=== PATIENT | female | born 1995 | race Caucasian/White ===

== ENCOUNTER 2021-06-08 07:35 | Inpatient (IN) ==
--- NOTE | 2021-06-08 08:35 | Obstetrical Progress Note ---
Date of Service June 08, 2021 Assessment & Plan (1) Labor abnormal: Induction of labor for postdates FHR; CAT1 Ctx; irregular VE; 09/01/post EFW by Tonya. 8lbs Cervidil 31 placed Results & Data ([facility]) Vital Signs (Past 12 Hours) Vital Signs Pulse BP 06/08/21 08:01 104 H 128/90
[2021-06-08] MEDS ORDERED: OXYTOCIN 30 UNITS/500 ML BAG IV PRN (08:41)
[2021-06-08 08:59] LABS: Hematocrit (blood only) 37.1 % (37-47); Hemoglobin 12.3 g/dL (12.0-16.0); Mean Corpuscular Hgb Conc 33.2 g/dL (32-36); Mean Corpuscular Volume 84.3 fL (80-100); Mean Platelet Volume 9.6 fL (7.4-10.4); Platelet Count 359 K/uL (130-400); RDW Coefficient of Variation 14.4 % (11.5-14.5); RDW Standard Deviation 44.6 fL (36.4-46.3); White Blood Count 13.97 K/uL (4.8-10.8)
[2021-06-08] MEDS ORDERED: ACETAMINOPHEN 325 MG TAB PO PRN (09:23)
[2021-06-08] MEDS ORDERED: ONDANSETRON INJ 2 MG/ML 2 ML VIAL IV PRN (09:23)
[2021-06-08] MEDS ORDERED: BUTORPHANOL TARTRATE 1 MG/ML VIAL IV PRN (09:23)
[2021-06-08] MEDS ORDERED: CALCIUM CARBONATE 500 MG CHEWABLE TAB PO PRN (09:25)
[2021-06-08] MEDS: miSOPROStoL 50 MCG TAB PO SCH ×4 (09:58→23:09)
--- NOTE | 2021-06-08 16:11 | Obstetrical Progress Note ---
Date of Service June 08, 2021 Assessment & Plan Admission and Anticipated Discharge Date Admission Date: June 08, 2021 Subjective Patient is seen Admitted by Dr Garcia for IOL for postdates Reviewed her records and confirmed with her GBS neg Smoker Obesity Denies h/o STD's ( no HSV/ Chlamydia/ GC), denies alcohol or Drug use Received 2 doses of PO Cytotec, does not feel any contractions nor pain No LOF/VB +FM's FHR reassuring Plan for dinner and then continue with cervical ripening All questions were answered. Results & Data ([facility]) Vital Signs (Past 12 Hours) Vital Signs Temp Pulse Resp BP 06/08/21 13:35 86 118/73 06/08/21 13:34 36.8 C 20 06/08/21 09:09 36.6 C 06/08/21 08:01 36.6 C 104 H 20 128/90
[2021-06-08] MEDS ORDERED: DINOPROSTONE 10 MG INSERT PV STA (22:19)
[2021-06-08] MEDS: LACTATED RINGER'S 1,000 ML IV PRN (22:44)
--- NOTE | 2021-06-08 22:50 | Obstetrical Progress Note ---
Date of Service June 08, 2021 Assessment & Plan Admission and Anticipated Discharge Date Admission Date: June 08, 2021 Subjective Patient is seen and examined. She has received 3 doses of p.o. Cytotec and has been feeling irregular cramps, off and on, not regular more painful. She denies leakage of fluid, vaginal bleeding. She reports good movements. She ate dinner and ready for Cervidil. Vital signs stable afebrile, heart rate reassuring, Cervix is 1 to 2 cm dilated, 40% effaced, central, -2 station, Cervidil was placed. Continue to monitor closely, Stadol IV and epidural for pain as needed. Results & Data ([facility]) Vital Signs (Past 12 Hours) Vital Signs Temp Pulse Resp BP 06/08/21 19:02 77 139/74 06/08/21 19:00 77 149/69 H 06/08/21 18:58 36.6 C 20 06/08/21 18:05 36.6 C 78 20 134/71 06/08/21 13:35 86 118/73 06/08/21 13:34 36.8 C 20
--- NOTE | 2021-06-09 07:40 | History & Physical Bridge Note ---
Date of Service June 09, 2021 History & Physical Bridge Note I have examined the patient, reviewed the History & Physical and in the interval since the performance of the History & Physical I have noted the following changes of clinical significance: no changes noted
[2021-06-09] MEDS ORDERED: SERTRALINE HCL 50 MG TABLET PO SCH (09:00)
[2021-06-09] MEDS ORDERED: Nursing to Pharmacy Communication SCH (12:45)
--- NOTE | 2021-06-09 13:37 | Labor Progress Brief Note ---
Date of Service June 09, 2021 Assessment & Plan (1) Post-dates : Plan: Postdates induction day #2 Pt doing well received Cytotec and Cervidil since admission FHR; CAY1 Ctx Minimal ad irregular VE; 2/-2 Hammond bulb [placed with 60 c and starting Pitocin augmentation Admission and Anticipated Discharge Date Admission Date: June 08, 2021 Results & Data ([facility]) Vital Signs (Past 12 Hours) Vital Signs Temp Pulse Resp BP 06/09/21 10:55 36.9 C 98 H 20 140/79 06/09/21 07:11 36.8 C 96 H 20 117/67 06/09/21 04:44 78 110/55 L 06/09/21 02:32 76 108/58 L 06/09/21 02:30 36.7 C 18
[2021-06-09] MEDS: LACTATED RINGER'S 1,000 ML IV PRN ×3 (14:19→21:36)
[2021-06-09] MEDS: OXYTOCIN 30 UNITS/500 ML BAG IV PRN (14:20)
[2021-06-09] MEDS: miSOPROStoL 50 MCG TAB PO SCH (15:53)
[2021-06-09] MEDS ORDERED: SODIUM CHLORIDE 0.9% INJ 10 ML VIAL ONE (20:36)
[2021-06-09] MEDS ORDERED: ePHEDrine sulfate 50 MG/ML AMP ONE (20:36)
[2021-06-09] MEDS ORDERED: fentaNYL 2MCG/ML ROPIVACAINE 1.25MG/ML 100 ML BAG EPI ONE (20:36)
[2021-06-09] MEDS ORDERED: BUPIVACAINE 0.25% 30 ML VIAL ONE (20:36)
[2021-06-09] MEDS ORDERED: fentaNYL citrate 100 MCG/2 ML VIAL ONE (20:36)
--- NOTE | 2021-06-09 21:20 | Anesthesiology Consultation ---
Date of Service June 09, 2021 Assessment & Plan Chart Review Chart Review: Acceptable Risk for Labor Epidural Consults Requested none History Height/Weight Height: 5 ft 2 in Weight: 92.079 kg Allergies Allergy/AdvReac Type Severity Reaction Status Date / Time Sulfa (Sulfonamide Allergy Intermediate Hives Verified 06/08/21 10:51 Antibiotics) Medications Home Medications Medication Instructions Recorded Confirmed Last Taken ferrous sulfate 325 mg (65 mg 325 mg PO DAILY 06/08/21 06/08/21 06/07/21 20:00 iron) tablet (Iron (ferrous sulfate)) prenat.vits,swapna,ueq-girs-ohukc 1 tab PO DAILY 06/08/21 06/08/21 06/07/21 20:00 Active Medications Generic Name Dose Route Start Last Admin Trade Name Freq PRN Reason Stop Dose Admin Lactated Ringer's 1,000 mls @ 125 mls/hr 06/08/21 08:41 06/09/21 18:44 Lr IV 06/10/21 08:40 125 mls/hr .Q8H PRN Administration L&D Protocol Protocol Oxytocin 30 units in 500 mls @ 20 mls/hr 06/09/21 13:44 06/09/21 19:55 Pitocin IV 06/11/21 13:43 1.2 units/hr .Q24H PRN 20 mls/hr Labor Induction/Augmentation Titration Protocol 1.2 UNITS/HR Past Medical History Medical History (Updated 06/09/21 @ 13:36 by Lev Garcia MD) No known health problems Past Family History Family History (Updated 06/08/21 @ 11:16 by Inna Sousa RN) Denies family history of No significant family history Past Surgical History Surgical History (Updated 06/08/21 @ 11:15 by Inna Sousa RN) History of appendectomy Social History Smoking Status: Current every day smoker tobacco type: cigarettes Smoking cigarettes per day: 10 Do You Dip or Chew Tobacco: No Hx Alcohol Use: No Hx Substance Use: No substance use type: does not use Physical Exam Vital Signs Last Vital Signs Temp 36.7 C 06/09/21 17:57 Pulse 133 H 06/09/21 21:16 Resp 20 06/09/21 17:57 BP 131/72 06/09/21 21:16 Pulse Ox 99 06/09/21 21:13 Testing Laboratory Results 06/08/21 08:51 Blood Type O Positive 06/08/21 08:51 Antibody Screen NEGATIVE 06/08/21 08:51
[2021-06-09] MEDS ORDERED: NALOXONE HCL 1 MG in SODIUM CHLORIDE 0.9% 1000ML 1,000 ML IV PRN (21:21)
[2021-06-09] MEDS ORDERED: NALBUPHINE HCL INJ 10 MG/ML AMP IV PRN (21:21)
[2021-06-09] MEDS ORDERED: NALOXONE HCL 0.4 MG/1 ML VIAL/CARP IV PRN (21:21)
[2021-06-09] MEDS ORDERED: diphenhydrAMINE 50 MG/ML VIAL IV PRN (21:21)
[2021-06-09] MEDS ORDERED: ePHEDrine sulfate 50 MG/ML AMP IV PRN (21:21)
--- NOTE | 2021-06-09 23:42 | Labor Progress Brief Note ---
Date of Service June 09, 2021 Assessment & Plan (1) Post-dates : Plan: Pt doing well Hammond bulb out FHR; CAT1 Ctx 1-3mins Pit; 20MU VE; 4/75/-2 AROM - clear Admission and Anticipated Discharge Date Admission Date: June 08, 2021 Results & Data ([facility]) Vital Signs (Past 12 Hours) Vital Signs Temp Pulse Resp BP Pulse Ox 06/09/21 23:38 77 99 06/09/21 23:33 80 98 06/09/21 23:32 80 108/59 L 06/09/21 23:28 89 98 06/09/21 23:23 64 95 06/09/21 23:18 64 108/58 L 96 06/09/21 23:13 69 94 06/09/21 23:08 70 95 06/09/21 23:03 81 114/60 95 06/09/21 23:00 18 06/09/21 22:58 75 94 06/09/21 22:53 79 92 06/09/21 22:48 89 91 06/09/21 22:46 73 113/63 06/09/21 22:44 71 94 06/09/21 22:43 68 95 06/09/21 22:38 69 95 06/09/21 22:33 64 96 06/09/21 22:31 64 115/63 06/09/21 22:30 20 06/09/21 22:28 68 95 06/09/21 22:24 66 94 06/09/21 22:23 71 95 06/09/21 22:18 64 96 06/09/21 22:17 64 116/60 06/09/21 22:14 69 94 06/09/21 22:13 68 96 06/09/21 22:08 69 94 06/09/21 22:03 64 95 06/09/21 22:02 82 118/62 06/09/21 22:00 16 06/09/21 21:58 66 95 06/09/21 21:56 66 94 06/09/21 21:53 67 95 06/09/21 21:48 66 96 06/09/21 21:43 65 96 06/09/21 21:38 67 104/54 L 97 06/09/21 21:33 66 98 06/09/21 21:32 70 98/50 L 06/09/21 21:30 20 06/09/21 21:28 66 97 06/09/21 21:25 71 130/55 L 06/09/21 21:23 84 98 06/09/21 21:21 86 134/62 06/09/21 21:18 95 H 99 06/09/21 21:16 133 H 131/72 06/09/21 21:13 127 H 99 06/09/21 21:10 76 125/58 L 06/09/21 21:08 76 128/66 97 06/09/21 21:06 73 124/75 06/09/21 21:05 72 121/58 L 06/09/21 21:03 73 98 06/09/21 20:58 87 100 06/09/21 20:53 89 100 06/09/21 20:48 85 100 06/09/21 20:42 71 99 06/09/21 20:37 75 99 06/09/21 20:32 72 100 06/09/21 20:29 70 130/81 06/09/21 20:27 71 97 06/09/21 19:57 59 L 124/71 06/09/21 17:57 36.7 C 20 06/09/21 17:52 85 114/68 06/09/21 17:07 73 112/62 06/09/21 16:08 89 127/61 06/09/21 15:05 36.9 C 16 06/09/21 15:00 82 118/59 L 06/09/21 14:25 78 128/68
[2021-06-10] MEDS ORDERED: OXYTOCIN 20 UNITS in LACTATED RINGER'S 1,000 ML IV SCH (00:16)
[2021-06-10] MEDS: LACTATED RINGER'S 1,000 ML IV PRN (03:24)
[2021-06-10] MEDS: fentaNYL 2MCG/ML ROPIVACAINE 1.25MG/ML 100 ML BAG EPI PRN ×2 (06:19→12:55)
--- NOTE | 2021-06-10 06:34 | Labor Progress Brief Note ---
Date of Service June 10, 2021 Assessment & Plan (1) Post-dates : Plan: Pit 20mu VE; 5//-1 Ctx ; 2-5mins IUPC and scalp placed without difficulty will increase Pitocin to 30mu Admission and Anticipated Discharge Date Admission Date: June 08, 2021 Results & Data ([facility]) Vital Signs (Past 12 Hours) Vital Signs Temp Pulse Resp BP Pulse Ox 06/10/21 06:28 81 97 06/10/21 06:23 70 97 06/10/21 06:18 71 119/64 97 06/10/21 06:13 77 97 06/10/21 06:08 75 98 06/10/21 06:03 82 97 06/10/21 06:02 73 115/63 06/10/21 05:58 75 97 06/10/21 05:53 75 96 06/10/21 05:48 71 96 06/10/21 05:46 85 117/60 06/10/21 05:43 82 95 06/10/21 05:38 68 95 06/10/21 05:33 68 96 06/10/21 05:31 73 115/62 06/10/21 05:28 68 96 06/10/21 05:23 69 95 06/10/21 05:18 67 96 06/10/21 05:17 70 112/63 06/10/21 05:13 64 96 06/10/21 05:08 69 95 06/10/21 05:04 57 L 112/56 L 06/10/21 05:03 64 95 06/10/21 05:02 65 116/56 L 06/10/21 05:00 36.8 C 18 06/10/21 04:58 79 96 06/10/21 04:53 68 96 06/10/21 04:48 66 97 06/10/21 04:46 83 105/59 L 06/10/21 04:43 65 96 06/10/21 04:38 67 96 06/10/21 04:33 68 96 06/10/21 04:31 86 104/55 L 06/10/21 04:28 68 96 06/10/21 04:23 63 96 06/10/21 04:18 70 96 06/10/21 04:17 73 108/58 L 06/10/21 04:13 71 96 06/10/21 04:08 71 96 06/10/21 04:03 73 96 06/10/21 04:01 65 112/56 L 06/10/21 03:58 70 96 06/10/21 03:53 73 97 06/10/21 03:49 69 107/55 L 06/10/21 03:48 72 93 06/10/21 03:43 84 97 06/10/21 03:38 76 96 06/10/21 03:33 75 96 06/10/21 03:32 78 107/58 L 06/10/21 03:28 81 96 06/10/21 03:23 70 97 06/10/21 03:18 73 97 06/10/21 03:17 70 99/56 L 06/10/21 03:13 73 96 06/10/21 03:08 75 97 06/10/21 03:03 74 97 06/10/21 03:02 70 97/56 L 06/10/21 02:58 68 96 06/10/21 02:54 36.6 C 18 06/10/21 02:53 79 97 06/10/21 02:48 70 95 06/10/21 02:46 70 118/61 06/10/21 02:43 71 95 06/10/21 02:38 72 95 06/10/21 02:33 73 95 06/10/21 02:31 70 114/56 L 06/10/21 02:28 71 95 06/10/21 02:23 74 95 06/10/21 02:18 68 95 06/10/21 02:17 72 108/58 L 06/10/21 02:13 73 95 06/10/21 02:08 75 94 06/10/21 02:03 74 95 06/10/21 02:01 66 114/57 L 06/10/21 01:58 69 95 06/10/21 01:53 75 95 06/10/21 01:48 71 96 06/10/21 01:47 73 110/57 L 06/10/21 01:43 74 96 06/10/21 01:38 73 96 06/10/21 01:33 81 96 06/10/21 01:31 71 121/65 06/10/21 01:28 78 97 06/10/21 01:23 85 95 06/10/21 01:18 81 96 06/10/21 01:16 71 117/63 06/10/21 01:13 74 96 06/10/21 01:08 81 98 06/10/21 01:03 88 97 06/10/21 01:02 81 120/64 06/10/21 01:00 36.7 C 18 06/10/21 00:58 80 98 06/10/21 00:53 75 96 06/10/21 00:48 91 H 97 06/10/21 00:46 85 120/57 L 06/10/21 00:43 89 95 06/10/21 00:38 86 95 06/10/21 00:33 77 118/72 95 06/10/21 00:28 82 95 06/10/21 00:23 87 96 06/10/21 00:18 84 96 06/10/21 00:16 64 121/72 06/10/21 00:13 77 95 06/10/21 00:08 75 96 06/10/21 00:03 82 96 06/10/21 00:01 80 116/65 06/09/21 23:58 79 97 06/09/21 23:53 67 96 06/09/21 23:48 74 96 06/09/21 23:47 66 120/70 06/09/21 23:43 67 96 06/09/21 23:38 77 99 06/09/21 23:33 80 98 06/09/21 23:32 80 108/59 L 06/09/21 23:28 89 98 06/09/21 23:26 36.7 C 18 06/09/21 23:23 64 95 06/09/21 23:18 64 108/58 L 96 06/09/21 23:13 69 94 06/09/21 23:08 70 95 06/09/21 23:03 81 114/60 95 06/09/21 23:00 18 06/09/21 22:58 75 94 06/09/21 22:53 79 92 06/09/21 22:48 89 91 06/09/21 22:46 73 113/63 06/09/21 22:44 71 94 06/09/21 22:43 68 95 06/09/21 22:38 69 95 06/09/21 22:33 64 96 06/09/21 22:31 64 115/63 06/09/21 22:30 20 11/02/21 22:28 68 95 06/09/21 22:24 66 94 06/09/21 22:23 71 95 06/09/21 22:18 64 96 06/09/21 22:17 64 116/60 06/09/21 22:14 69 94 06/09/21 22:13 68 96 06/09/21 22:08 69 94 06/09/21 22:03 64 95 06/09/21 22:02 82 118/62 06/09/21 22:00 16 06/09/21 21:58 66 95 06/09/21 21:56 66 94 06/09/21 21:53 67 95 06/09/21 21:48 66 96 06/09/21 21:43 65 96 06/09/21 21:38 67 104/54 L 97 06/09/21 21:33 66 98 06/09/21 21:32 70 98/50 L 06/09/21 21:30 20 06/09/21 21:28 66 97 06/09/21 21:25 71 130/55 L 06/09/21 21:23 84 98 06/09/21 21:21 86 134/62 06/09/21 21:18 95 H 99 06/09/21 21:16 133 H 131/72 06/09/21 21:13 127 H 99 06/09/21 21:10 76 125/58 L 06/09/21 21:08 76 128/66 97 06/09/21 21:06 73 124/75 06/09/21 21:05 72 121/58 L 06/09/21 21:03 73 98 06/09/21 20:58 87 100 06/09/21 20:53 89 100 06/09/21 20:48 85 100 06/09/21 20:42 71 99 06/09/21 20:37 75 99 06/09/21 20:32 72 100 06/09/21 20:29 70 130/81 06/09/21 20:27 71 97 06/09/21 19:57 59 L 124/71
--- NOTE | 2021-06-10 09:22 | Obstetrical Progress Note ---
Date of Service June 10, 2021 Assessment & Plan Admission and Anticipated Discharge Date Admission Date: June 08, 2021 Subjective Patient is reevaluated I got sign out from Dr Garcia who placed IUPC, FSE this morning and ordered Oxytocin up to 30 miu/min Patient feels well, no complaints Has epidural and comfortable No fever/ chills/ CP/ SOB/ N&V VE was just done by her nurse, 7/ 80%/ -2 FHR categ I Continue to monitor closely Results & Data ([facility]) Vital Signs (Past 12 Hours) Vital Signs Temp Pulse Resp BP Pulse Ox Pulse Ox 06/10/21 09:18 78 130/71 97 06/10/21 09:13 79 97 06/10/21 09:08 68 97 06/10/21 09:03 65 115/59 L 97 06/10/21 08:58 69 98 06/10/21 08:53 36.6 C 81 20 97 06/10/21 08:48 79 98 06/10/21 08:47 73 119/64 06/10/21 08:43 78 98 06/10/21 08:38 73 96 06/10/21 08:33 70 98 06/10/21 08:31 68 104/59 L 06/10/21 08:28 66 97 06/10/21 08:23 71 96 06/10/21 08:18 68 97 06/10/21 08:17 96 06/10/21 08:16 70 103/58 L 06/10/21 08:13 66 96 06/10/21 08:08 71 95 06/10/21 08:03 73 95 06/10/21 08:02 66 101/57 L 06/10/21 07:58 68 95 06/10/21 07:53 69 94 06/10/21 07:48 68 94 06/10/21 07:46 70 106/57 L 06/10/21 07:43 65 95 06/10/21 07:38 77 97 06/10/21 07:33 66 95 06/10/21 07:31 60 111/59 L 06/10/21 07:28 70 95 06/10/21 07:23 68 95 06/10/21 07:18 68 107/57 L 95 06/10/21 07:13 63 96 06/10/21 07:08 62 96 06/10/21 07:03 71 97 06/10/21 07:02 36.6 C 64 20 108/62 06/10/21 06:58 65 95 06/10/21 06:53 67 96 06/10/21 06:48 65 96 06/10/21 06:47 65 110/57 L 06/10/21 06:43 67 96 06/10/21 06:38 85 98 06/10/21 06:33 73 99 06/10/21 06:31 75 127/71 06/10/21 06:28 81 97 06/10/21 06:23 70 97 06/10/21 06:18 71 119/64 97 06/10/21 06:13 77 97 06/10/21 06:08 75 98 06/10/21 06:03 82 97 06/10/21 06:02 73 115/63 06/10/21 05:58 75 97 06/10/21 05:53 75 96 06/10/21 05:48 71 96 06/10/21 05:46 85 117/60 06/10/21 05:43 82 95 06/10/21 05:38 68 95 06/10/21 05:33 68 96 06/10/21 05:31 73 115/62 06/10/21 05:28 68 96 06/10/21 05:23 69 95 06/10/21 05:18 67 96 06/10/21 05:17 70 112/63 06/10/21 05:13 64 96 06/10/21 05:08 69 95 06/10/21 05:04 57 L 112/56 L 06/10/21 05:03 64 95 06/10/21 05:02 65 116/56 L 06/10/21 05:00 36.8 C 18 06/10/21 04:58 79 96 06/10/21 04:53 68 96 06/10/21 04:48 66 97 06/10/21 04:46 83 105/59 L 06/10/21 04:43 65 96 06/10/21 04:38 67 96 06/10/21 04:33 68 96 06/10/21 04:31 86 104/55 L 06/10/21 04:28 68 96 06/10/21 04:23 63 96 06/10/21 04:18 70 96 06/10/21 04:17 73 108/58 L 06/10/21 04:13 71 96 06/10/21 04:08 71 96 06/10/21 04:03 73 96 06/10/21 04:01 65 112/56 L 06/10/21 03:58 70 96 06/10/21 03:53 73 97 06/10/21 03:49 69 107/55 L 06/10/21 03:48 72 93 06/10/21 03:43 84 97 06/10/21 03:38 76 96 06/10/21 03:33 75 96 06/10/21 03:32 78 107/58 L 06/10/21 03:28 81 96 06/10/21 03:23 70 97 06/10/21 03:18 73 97 06/10/21 03:17 70 99/56 L 06/10/21 03:13 73 96 06/10/21 03:08 75 97 06/10/21 03:03 74 97 06/10/21 03:02 70 97/56 L 06/10/21 02:58 68 96 06/10/21 02:54 36.6 C 18 06/10/21 02:53 79 97 06/10/21 02:48 70 95 06/10/21 02:46 70 118/61 06/10/21 02:43 71 95 06/10/21 02:38 72 95 06/10/21 02:33 73 95 06/10/21 02:31 70 114/56 L 06/10/21 02:28 71 95 06/10/21 02:23 74 95 06/10/21 02:18 68 95 06/10/21 02:17 72 108/58 L 06/10/21 02:13 73 95 06/10/21 02:08 75 94 06/10/21 02:03 74 95 06/10/21 02:01 66 114/57 L 06/10/21 01:58 69 95 06/10/21 01:53 75 95 06/10/21 01:48 71 96 06/10/21 01:47 73 110/57 L 06/10/21 01:43 74 96 06/10/21 01:38 73 96 06/10/21 01:33 81 96 06/10/21 01:31 71 121/65 06/10/21 01:28 78 97 11/03/21 01:23 85 95 06/10/21 01:18 81 96 06/10/21 01:16 71 117/63 06/10/21 01:13 74 96 06/10/21 01:08 81 98 06/10/21 01:03 88 97 06/10/21 01:02 81 120/64 06/10/21 01:00 36.7 C 18 06/10/21 00:58 80 98 06/10/21 00:53 75 96 06/10/21 00:48 91 H 97 06/10/21 00:46 85 120/57 L 06/10/21 00:43 89 95 06/10/21 00:38 86 95 06/10/21 00:33 77 118/72 95 06/10/21 00:28 82 95 06/10/21 00:23 87 96 06/10/21 00:18 84 96 06/10/21 00:16 64 121/72 06/10/21 00:13 77 95 06/10/21 00:08 75 96 06/10/21 00:03 82 96 06/10/21 00:01 80 116/65 06/09/21 23:58 79 97 06/09/21 23:53 67 96 06/09/21 23:48 74 96 06/09/21 23:47 66 120/70 06/09/21 23:43 67 96 06/09/21 23:38 77 99 06/09/21 23:33 80 98 06/09/21 23:32 80 108/59 L 06/09/21 23:28 89 98 06/09/21 23:26 36.7 C 18 06/09/21 23:23 64 95 06/09/21 23:18 64 108/58 L 96 06/09/21 23:13 69 94 06/09/21 23:08 70 95 06/09/21 23:03 81 114/60 95 06/09/21 23:00 18 06/09/21 22:58 75 94 06/09/21 22:53 79 92 06/09/21 22:48 89 91 06/09/21 22:46 73 113/63 06/09/21 22:44 71 94 06/09/21 22:43 68 95 06/09/21 22:38 69 95 06/09/21 22:33 64 96 06/09/21 22:31 64 115/63 06/09/21 22:30 20 06/09/21 22:28 68 95 06/09/21 22:24 66 94 06/09/21 22:23 71 95 06/09/21 22:18 64 96 06/09/21 22:17 64 116/60 06/09/21 22:14 69 94 06/09/21 22:13 68 96 06/09/21 22:08 69 94 06/09/21 22:03 64 95 06/09/21 22:02 82 118/62 06/09/21 22:00 16 06/09/21 21:58 66 95 06/09/21 21:56 66 94 06/09/21 21:53 67 95 06/09/21 21:48 66 96 06/09/21 21:43 65 96 06/09/21 21:38 67 104/54 L 97 06/09/21 21:33 66 98 06/09/21 21:32 70 98/50 L 06/09/21 21:30 20 06/09/21 21:28 66 97 06/09/21 21:25 71 130/55 L 06/09/21 21:23 84 98 06/09/21 21:21 86 134/62
[2021-06-10] MEDS: OXYTOCIN 30 UNITS/500 ML BAG IV PRN (12:56)
[2021-06-10] MEDS ORDERED: ceFAZolin 2000MG 2,000 MG/15 ML SYR IV SCH (14:30)
[2021-06-10] MEDS ORDERED: LACTATED RINGER'S 1,000 ML IV SCH ×3 (14:30→16:15)
--- NOTE | 2021-06-10 14:35 | Obstetrical Progress Note ---
Date of Service June 10, 2021 Assessment & Plan Admission and Anticipated Discharge Date Admission Date: June 08, 2021 Subjective Patient is reevaluated. She complains of back pain from being in bed for so long but denies contraction pain, fever, chills, nausea or vomiting. Vital signs stable afebrile, heart rate category 1, Vaginal exam done by myself cervix is 6 to 7 cm dilated, 80% effaced, head is coned and at -1 station, Pitocin has been at 30 mIU/min since 10 AM. [place] has been showing low amplitude contractions every 2 to 3 minutes. Discussed the finding with the patient, no cervical change despite AROM, maximum Pitocin 4 hours and: Had suggesting arrest of dilatation at active stage of labor and CPD. Recommended primary . Discussed the risks of as a major surgery with risks including but not limited to bleeding, infection, injury to other organs like bowels bladder ureters, increased risk of blood clots and longer recovery. She understood all and desire to proceed with . All questions were answered. She signed an informed consent. Results & Data ([facility]) Vital Signs (Past 12 Hours) Vital Signs Temp Pulse Resp BP Pulse Ox Pulse Ox 06/10/21 14:27 102 H 87 L 06/10/21 14:25 92 H 97 06/10/21 14:20 118 H 97 06/10/21 14:17 121 H 121/74 06/10/21 14:15 93 H 98 06/10/21 14:10 92 H 99 06/10/21 14:05 72 97 06/10/21 14:03 73 118/69 06/10/21 14:00 69 98 06/10/21 13:55 67 97 06/10/21 13:50 70 97 06/10/21 13:47 73 121/69 06/10/21 13:46 18 06/10/21 13:45 70 98 06/10/21 13:40 66 97 06/10/21 13:35 71 98 06/10/21 13:33 68 85 L 06/10/21 13:31 83 116/59 L 06/10/21 13:29 64 97 06/10/21 13:24 65 99 06/10/21 13:19 80 96 06/10/21 13:18 36.5 C 20 06/10/21 13:17 69 112/60 06/10/21 13:14 75 98 06/10/21 13:09 71 98 06/10/21 13:04 68 99 06/10/21 13:01 77 113/59 L 06/10/21 12:59 66 97 06/10/21 12:54 68 97 06/10/21 12:49 80 97 06/10/21 12:46 73 18 116/59 L 06/10/21 12:44 67 97 06/10/21 12:39 66 97 06/10/21 12:34 74 97 06/10/21 12:32 74 112/59 L 06/10/21 12:29 70 96 06/10/21 12:24 82 99 06/10/21 12:19 76 96 06/10/21 12:18 89 88 L 06/10/21 12:17 67 125/59 L 06/10/21 12:14 64 18 97 06/10/21 12:09 73 98 06/10/21 12:04 62 98 06/10/21 12:01 61 120/67 06/10/21 11:59 73 98 06/10/21 11:54 74 97 06/10/21 11:49 61 98 06/10/21 11:47 59 L 109/58 L 06/10/21 11:46 20 06/10/21 11:44 62 96 06/10/21 11:39 72 97 06/10/21 11:34 88 98 06/10/21 11:31 76 121/68 06/10/21 11:29 74 97 06/10/21 11:24 78 96 06/10/21 11:19 69 97 06/10/21 11:18 36.5 C 20 06/10/21 11:16 78 120/67 06/10/21 11:14 69 97 06/10/21 11:09 64 96 06/10/21 11:04 68 96 06/10/21 11:03 65 117/57 L 06/10/21 10:59 66 97 06/10/21 10:54 71 98 06/10/21 10:49 82 96 06/10/21 10:46 77 118/68 06/10/21 10:45 20 06/10/21 10:44 70 94 06/10/21 10:39 70 95 06/10/21 10:34 71 95 06/10/21 10:32 70 117/65 06/10/21 10:29 88 95 06/10/21 10:24 70 96 06/10/21 10:19 68 95 06/10/21 10:16 93 H 18 129/75 06/10/21 10:14 116 H 97 06/10/21 10:09 76 95 06/10/21 10:04 71 96 06/10/21 10:01 77 122/72 06/10/21 09:59 64 96 06/10/21 09:54 68 96 06/10/21 09:49 67 97 06/10/21 09:47 66 120/67 06/10/21 09:44 68 18 96 06/10/21 09:39 80 97 06/10/21 09:34 74 97 06/10/21 09:32 69 114/57 L 06/10/21 09:29 89 96 06/10/21 09:23 66 97 06/10/21 09:19 20 06/10/21 09:18 78 130/71 97 06/10/21 09:13 79 97 06/10/21 09:08 68 97 06/10/21 09:03 65 115/59 L 97 06/10/21 08:58 69 98 06/10/21 08:53 36.6 C 81 20 97 06/10/21 08:48 79 98 06/10/21 08:47 73 119/64 06/10/21 08:43 78 98 06/10/21 08:38 73 96 06/10/21 08:33 70 98 06/10/21 08:31 68 104/59 L 06/10/21 08:28 66 97 06/10/21 08:23 71 96 06/10/21 08:18 68 97 06/10/21 08:17 96 06/10/21 08:16 70 103/58 L 06/10/21 08:13 66 96 06/10/21 08:08 71 95 06/10/21 08:03 73 95 06/10/21 08:02 66 101/57 L 06/10/21 07:58 68 95 06/10/21 07:53 69 94 06/10/21 07:48 68 94 06/10/21 07:46 70 106/57 L 06/10/21 07:43 65 95 06/10/21 07:38 77 97 06/10/21 07:33 66 95 06/10/21 07:31 60 111/59 L 06/10/21 07:28 70 95 06/10/21 07:23 68 95 06/10/21 07:18 68 107/57 L 95 06/10/21 07:13 63 96 06/10/21 07:08 62 96 06/10/21 07:03 71 97 06/10/21 07:02 36.6 C 64 20 108/62 06/10/21 06:58 65 95 06/10/21 06:53 67 96 06/10/21 06:48 65 96 06/10/21 06:47 65 110/57 L 06/10/21 06:43 67 96 06/10/21 06:38 85 98 06/10/21 06:33 73 99 06/10/21 06:31 75 127/71 06/10/21 06:28 81 97 06/10/21 06:23 70 97 06/10/21 06:18 71 119/64 97 06/10/21 06:13 77 97 06/10/21 06:08 75 98 06/10/21 06:03 82 97 06/10/21 06:02 73 115/63 06/10/21 05:58 75 97 06/10/21 05:53 75 96 06/10/21 05:48 71 96 06/10/21 05:46 85 117/60 06/10/21 05:43 82 95 06/10/21 05:38 68 95 06/10/21 05:33 68 96 06/10/21 05:31 73 115/62 06/10/21 05:28 68 96 06/10/21 05:23 69 95 06/10/21 05:18 67 96 06/10/21 05:17 70 112/63 06/10/21 05:13 64 96 06/10/21 05:08 69 95 06/10/21 05:04 57 L 112/56 L 06/10/21 05:03 64 95 06/10/21 05:02 65 116/56 L 06/10/21 05:00 36.8 C 18 06/10/21 04:58 79 96 06/10/21 04:53 68 96 06/10/21 04:48 66 97 06/10/21 04:46 83 105/59 L 06/10/21 04:43 65 96 06/10/21 04:38 67 96 06/10/21 04:33 68 96 06/10/21 04:31 86 104/55 L 06/10/21 04:28 68 96 06/10/21 04:23 63 96 06/10/21 04:18 70 96 06/10/21 04:17 73 108/58 L 06/10/21 04:13 71 96 06/10/21 04:08 71 96 06/10/21 04:03 73 96 06/10/21 04:01 65 112/56 L 06/10/21 03:58 70 96 06/10/21 03:53 73 97 06/10/21 03:49 69 107/55 L 06/10/21 03:48 72 93 06/10/21 03:43 84 97 06/10/21 03:38 76 96 06/10/21 03:33 75 96 06/10/21 03:32 78 107/58 L 06/10/21 03:28 81 96 06/10/21 03:23 70 97 06/10/21 03:18 73 97 06/10/21 03:17 70 99/56 L 06/10/21 03:13 73 96 06/10/21 03:08 75 97 06/10/21 03:03 74 97 06/10/21 03:02 70 97/56 L 06/10/21 02:58 68 96 06/10/21 02:54 36.6 C 18 06/10/21 02:53 79 97 06/10/21 02:48 70 95 06/10/21 02:46 70 118/61 06/10/21 02:43 71 95 06/10/21 02:38 72 95 06/10/21 02:33 73 95
[2021-06-10] MEDS ORDERED: CITRIC ACID/SODIUM CITRATE 15 ML UDC PO SCH (14:45)
[2021-06-10] MEDS ORDERED: CLINDAMYCIN 900 MG in DEXTROSE 5% 50 ML IV SCH (14:45)
[2021-06-10] MEDS ORDERED: AZITHROMYCIN 500 MG in DEXTROSE 5% 250 ML IV SCH (14:45)
[2021-06-10] MEDS ORDERED: LIDOCAINE 2%/EPINEPHRINE 1:200,000 20 ML SDV ONE (14:46)
[2021-06-10] MEDS ORDERED: OXYTOCIN 10 UNITS/ML VIAL ONE ×2 (14:46→15:01)
[2021-06-10] MEDS ORDERED: MoRPHine SULFATE PF 1 MG/ML 10 ML AMP/VIAL ONE (14:47)
[2021-06-10 14:54] LABS: Basophils # (auto) 0.02 K/uL (0-0.2); Basophils % (auto) 0.1 %; Eosinophils # (auto) 0.02 K/uL (0-0.5); Eosinophils % (auto) 0.1 %; Hematocrit (blood only) 38.2 % (37-47); Hemoglobin 13.1 g/dL (12.0-16.0); Immature Granulocytes # (auto) 0.04 K/uL (0.00-0.02); Immature Granulocytes % (auto) 0.2 %; Lymphocytes # (auto) 1.57 K/uL (1.2-3.4); Lymphocytes % (auto) 7.8 %; Mean Corpuscular Hemoglobin 28.7 pg (25-34); Mean Corpuscular Hgb Conc 34.3 g/dL (32-36); Mean Corpuscular Volume 83.8 fL (80-100); Mean Platelet Volume 9.8 fL (7.4-10.4); Monocytes # (auto) 1.25 K/uL (0.11-0.59); Monocytes % (auto) 6.2 %; Neutrophils # (auto) 17.33 K/uL (1.4-6.5); Neutrophils % (auto) 85.6 %; Platelet Count 369 K/uL (130-400); RDW Coefficient of Variation 14.6 % (11.5-14.5); RDW Standard Deviation 44.6 fL (36.4-46.3); Red Blood Count 4.56 M/uL (4.2-5.4); White Blood Count 20.23 K/uL (4.8-10.8)
[2021-06-10] MEDS ORDERED: ePHEDrine sulfate 50 MG/ML AMP IV PRN (15:28)
[2021-06-10] MEDS ORDERED: NALOXONE HCL 1 MG in SODIUM CHLORIDE 0.9% 1000ML 1,000 ML IV PRN (15:28)
[2021-06-10] MEDS ORDERED: MEPERIDINE HCL 25 MG/ML CARP/VIAL IV PRN (15:28)
[2021-06-10] MEDS ORDERED: NALBUPHINE HCL INJ 10 MG/ML AMP IV PRN (15:28)
[2021-06-10] MEDS ORDERED: LACTATED RINGER'S 500 ML IV PRN (15:28)
[2021-06-10] MEDS ORDERED: NALOXONE HCL 0.08 MG in SYRINGE 1.8 ML IV PRN (15:28)
[2021-06-10] MEDS ORDERED: NALOXONE HCL 0.4 MG/1 ML VIAL/CARP IV PRN (15:28)
[2021-06-10] MEDS ORDERED: MoRPHine SULFATE PF 1 MG/ML 10 ML AMP/VIAL INT SPINAL ONE (15:28)
[2021-06-10] MEDS ORDERED: DC INTRASPINAL MORPHINE SCH (15:30)
[2021-06-10] MEDS ORDERED: SODIUM CHLORIDE 0.9% 1000ML 1,000 ML IV SCH (15:30)
[2021-06-10] MEDS ORDERED: NO NARCOTICS OR SEDATIVES SCH (15:30)
[2021-06-10] MEDS ORDERED: miSOPROStoL 200 MCG TAB ONE (15:40)
[2021-06-10] MEDS ORDERED: SENNA 8.6 MG TAB PO PRN (16:04)
[2021-06-10] MEDS ORDERED: SUPERCREAM 0.870% 15 GM JAR EXT PRN (16:04)
[2021-06-10] MEDS ORDERED: HYDROCORTISONE ACETATE 25 MG SUPP PR PRN (16:04)
[2021-06-10] MEDS ORDERED: BENZOCAINE 20% AER SPR 82.5 GM CAN EXT PRN (16:04)
[2021-06-10] MEDS ORDERED: MAGNESIUM HYDROXIDE SUSP 30 ML UDC PO PRN (16:04)
[2021-06-10] MEDS ORDERED: DIPHTHERIA/TETANUS/PERTUSSIS 0.5 ML SYR/VIAL IM ONE (16:04)
[2021-06-10] MEDS ORDERED: METHYLERGONOVINE MALEATE 0.2 MG/ML AMP ONE (16:09)
[2021-06-10] MEDS ORDERED: miSOPROStoL 200 MCG TAB PR ONE (16:09)
--- NOTE | 2021-06-10 16:33 | Anesthesiology Progress Note ---
Date of Service June 10, 2021 Anesthesia Post Procedure Vital Signs Vital Signs: Temp Pulse Resp BP Pulse Ox Pulse Ox 06/10/21 16:31 95 H 100 06/10/21 16:26 113 H 99 06/10/21 16:21 96 H 99 06/10/21 16:17 89 126/54 L 06/10/21 16:16 92 H 99 06/10/21 14:48 107 H 121/74 06/10/21 14:35 85 99 06/10/21 14:32 90 133/63 06/10/21 14:30 90 96 06/10/21 14:27 102 H 87 L 06/10/21 14:25 92 H 97 06/10/21 14:20 118 H 97 06/10/21 14:17 121 H 121/74 06/10/21 14:15 93 H 98 06/10/21 14:10 92 H 99 06/10/21 14:05 72 97 06/10/21 14:03 73 118/69 06/10/21 14:00 69 98 06/10/21 13:55 67 97 06/10/21 13:50 70 97 06/10/21 13:47 73 121/69 06/10/21 13:46 18 06/10/21 13:45 70 98 06/10/21 13:40 66 97 06/10/21 13:35 71 98 06/10/21 13:33 68 85 L 06/10/21 13:31 83 116/59 L 06/10/21 13:29 64 97 06/10/21 13:24 65 99 06/10/21 13:19 80 96 06/10/21 13:18 97.7 F 20 06/10/21 13:17 69 112/60 06/10/21 13:14 75 98 06/10/21 13:09 71 98 06/10/21 13:04 68 99 06/10/21 13:01 77 113/59 L 06/10/21 12:59 66 97 06/10/21 12:54 68 97 06/10/21 12:49 80 97 06/10/21 12:46 73 18 116/59 L 06/10/21 12:44 67 97 06/10/21 12:39 66 97 06/10/21 12:34 74 97 06/10/21 12:32 74 112/59 L 06/10/21 12:29 70 96 06/10/21 12:24 82 99 06/10/21 12:19 76 96 06/10/21 12:18 89 88 L 06/10/21 12:17 67 125/59 L 06/10/21 12:14 64 18 97 06/10/21 12:09 73 98 06/10/21 12:04 62 98 06/10/21 12:01 61 120/67 06/10/21 11:59 73 98 06/10/21 11:54 74 97 06/10/21 11:49 61 98 06/10/21 11:47 59 L 109/58 L 06/10/21 11:46 20 06/10/21 11:44 62 96 06/10/21 11:39 72 97 06/10/21 11:34 88 98 06/10/21 11:31 76 121/68 06/10/21 11:29 74 97 06/10/21 11:24 78 96 06/10/21 11:19 69 97 06/10/21 11:18 97.7 F 20 06/10/21 11:16 78 120/67 06/10/21 11:14 69 97 06/10/21 11:09 64 96 06/10/21 11:04 68 96 06/10/21 11:03 65 117/57 L 06/10/21 10:59 66 97 06/10/21 10:54 71 98 06/10/21 10:49 82 96 06/10/21 10:46 77 118/68 06/10/21 10:45 20 06/10/21 10:44 70 94 06/10/21 10:39 70 95 06/10/21 10:34 71 95 06/10/21 10:32 70 117/65 06/10/21 10:29 88 95 06/10/21 10:24 70 96 06/10/21 10:19 68 95 06/10/21 10:16 93 H 18 129/75 06/10/21 10:14 116 H 97 06/10/21 10:09 76 95 06/10/21 10:04 71 96 06/10/21 10:01 77 122/72 06/10/21 09:59 64 96 06/10/21 09:54 68 96 06/10/21 09:49 67 97 06/10/21 09:47 66 120/67 06/10/21 09:44 68 18 96 06/10/21 09:39 80 97 06/10/21 09:34 74 97 06/10/21 09:32 69 114/57 L 06/10/21 09:29 89 96 06/10/21 09:23 66 97 06/10/21 09:19 20 06/10/21 09:18 78 130/71 97 06/10/21 09:13 79 97 06/10/21 09:08 68 97 06/10/21 09:03 65 115/59 L 97 06/10/21 08:58 69 98 06/10/21 08:53 97.9 F 81 20 97 06/10/21 08:48 79 98 06/10/21 08:47 73 119/64 06/10/21 08:43 78 98 06/10/21 08:38 73 96 06/10/21 08:33 70 98 06/10/21 08:31 68 104/59 L 06/10/21 08:28 66 97 06/10/21 08:23 71 96 06/10/21 08:18 68 97 06/10/21 08:17 96 06/10/21 08:16 70 103/58 L 06/10/21 08:13 66 96 06/10/21 08:08 71 95 06/10/21 08:03 73 95 06/10/21 08:02 66 101/57 L 06/10/21 07:58 68 95 06/10/21 07:53 69 94 06/10/21 07:48 68 94 06/10/21 07:46 70 106/57 L 06/10/21 07:43 65 95 06/10/21 07:38 77 97 06/10/21 07:33 66 95 06/10/21 07:31 60 111/59 L 06/10/21 07:28 70 95 06/10/21 07:23 68 95 06/10/21 07:18 68 107/57 L 95 06/10/21 07:13 63 96 06/10/21 07:08 62 96 06/10/21 07:03 71 97 06/10/21 07:02 97.9 F 64 20 108/62 06/10/21 06:58 65 95 06/10/21 06:53 67 96 06/10/21 06:48 65 96 06/10/21 06:47 65 110/57 L 06/10/21 06:43 67 96 06/10/21 06:38 85 98 06/10/21 06:33 73 99 06/10/21 06:31 75 127/71 06/10/21 06:28 81 97 06/10/21 06:23 70 97 06/10/21 06:18 71 119/64 97 06/10/21 06:13 77 97 06/10/21 06:08 75 98 06/10/21 06:03 82 97 06/10/21 06:02 73 115/63 06/10/21 05:58 75 97 06/10/21 05:53 75 96 06/10/21 05:48 71 96 06/10/21 05:46 85 117/60 06/10/21 05:43 82 95 06/10/21 05:38 68 95 06/10/21 05:33 68 96 06/10/21 05:31 73 115/62 06/10/21 05:28 68 96 06/10/21 05:23 69 95 06/10/21 05:18 67 96 06/10/21 05:17 70 112/63 06/10/21 05:13 64 96 06/10/21 05:08 69 95 06/10/21 05:04 57 L 112/56 L 06/10/21 05:03 64 95 06/10/21 05:02 65 116/56 L 06/10/21 05:00 98.2 F 18 06/10/21 04:58 79 96 06/10/21 04:53 68 96 06/10/21 04:48 66 97 06/10/21 04:46 83 105/59 L 06/10/21 04:43 65 96 06/10/21 04:38 67 96 06/10/21 04:33 68 96 06/10/21 04:31 86 104/55 L 06/10/21 04:28 68 96 06/10/21 04:23 63 96 06/10/21 04:18 70 96 06/10/21 04:17 73 108/58 L 06/10/21 04:13 71 96 06/10/21 04:08 71 96 06/10/21 04:03 73 96 06/10/21 04:01 65 112/56 L 06/10/21 03:58 70 96 06/10/21 03:53 73 97 06/10/21 03:49 69 107/55 L 06/10/21 03:48 72 93 06/10/21 03:43 84 97 06/10/21 03:38 76 96 06/10/21 03:33 75 96 06/10/21 03:32 78 107/58 L 06/10/21 03:28 81 96 06/10/21 03:23 70 97 06/10/21 03:18 73 97 06/10/21 03:17 70 99/56 L 06/10/21 03:13 73 96 06/10/21 03:08 75 97 06/10/21 03:03 74 97 06/10/21 03:02 70 97/56 L 06/10/21 02:58 68 96 06/10/21 02:54 97.9 F 18 06/10/21 02:53 79 97 06/10/21 02:48 70 95 06/10/21 02:46 70 118/61 06/10/21 02:43 71 95 06/10/21 02:38 72 95 06/10/21 02:33 73 95 06/10/21 02:31 70 114/56 L 06/10/21 02:28 71 95 06/10/21 02:23 74 95 06/10/21 02:18 68 95 06/10/21 02:17 72 108/58 L 06/10/21 02:13 73 95 06/10/21 02:08 75 94 06/10/21 02:03 74 95 06/10/21 02:01 66 114/57 L 06/10/21 01:58 69 95 06/10/21 01:53 75 95 06/10/21 01:48 71 96 06/10/21 01:47 73 110/57 L 06/10/21 01:43 74 96 06/10/21 01:38 73 96 06/10/21 01:33 81 96 06/10/21 01:31 71 121/65 06/10/21 01:28 78 97 06/10/21 01:23 85 95 06/10/21 01:18 81 96 06/10/21 01:16 71 117/63 06/10/21 01:13 74 96 06/10/21 01:08 81 98 06/10/21 01:03 88 97 06/10/21 01:02 81 120/64 06/10/21 01:00 98.1 F 18 06/10/21 00:58 80 98 06/10/21 00:53 75 96 06/10/21 00:48 91 H 97 06/10/21 00:46 85 120/57 L 06/10/21 00:43 89 95 06/10/21 00:38 86 95 06/10/21 00:33 77 118/72 95 06/10/21 00:28 82 95 06/10/21 00:23 87 96 06/10/21 00:18 84 96 06/10/21 00:16 64 121/72 06/10/21 00:13 77 95 06/10/21 00:08 75 96 06/10/21 00:03 82 96 06/10/21 00:01 80 116/65 06/09/21 23:58 79 97 06/09/21 23:53 67 96 06/09/21 23:48 74 96 06/09/21 23:47 66 120/70 06/09/21 23:43 67 96 06/09/21 23:38 77 99 06/09/21 23:33 80 98 06/09/21 23:32 80 108/59 L 06/09/21 23:28 89 98 06/09/21 23:26 98.1 F 18 06/09/21 23:23 64 95 06/09/21 23:18 64 108/58 L 96 06/09/21 23:13 69 94 06/09/21 23:08 70 95 06/09/21 23:03 81 114/60 95 06/09/21 23:00 18 06/09/21 22:58 75 94 06/09/21 22:53 79 92 06/09/21 22:48 89 91 06/09/21 22:46 73 113/63 06/09/21 22:44 71 94 06/09/21 22:43 68 95 06/09/21 22:38 69 95 06/09/21 22:33 64 96 06/09/21 22:31 64 115/63 06/09/21 22:30 20 11/02/21 22:28 68 95 06/09/21 22:24 66 94 06/09/21 22:23 71 95 06/09/21 22:18 64 96 06/09/21 22:17 64 116/60 06/09/21 22:14 69 94 06/09/21 22:13 68 96 06/09/21 22:08 69 94 06/09/21 22:03 64 95 06/09/21 22:02 82 118/62 06/09/21 22:00 16 06/09/21 21:58 66 95 06/09/21 21:56 66 94 06/09/21 21:53 67 95 06/09/21 21:48 66 96 06/09/21 21:43 65 96 06/09/21 21:38 67 104/54 L 97 06/09/21 21:33 66 98 06/09/21 21:32 70 98/50 L 06/09/21 21:30 20 06/09/21 21:28 66 97 06/09/21 21:25 71 130/55 L 06/09/21 21:23 84 98 06/09/21 21:21 86 134/62 06/09/21 21:18 95 H 99 06/09/21 21:16 133 H 131/72 06/09/21 21:13 127 H 99 06/09/21 21:10 76 125/58 L 06/09/21 21:08 76 128/66 97 06/09/21 21:06 73 124/75 06/09/21 21:05 72 121/58 L 06/09/21 21:03 73 98 06/09/21 20:58 87 100 06/09/21 20:53 89 100 06/09/21 20:48 85 100 06/09/21 20:42 71 99 06/09/21 20:37 75 99 06/09/21 20:32 72 100 06/09/21 20:29 70 130/81 06/09/21 20:27 71 97 06/09/21 19:57 59 L 124/71 06/09/21 17:57 98.1 F 20 06/09/21 17:52 85 114/68 06/09/21 17:07 73 112/62 Pain Intensity Bilateral Abdomen: Pain Intensity: 0 Transfer of Care Handoff Completed per policy Notes Mental Status: alert / awake / arousable and participated in evaluation Nausea / Vomiting: adequately controlled Pain: adequately controlled Airway Patency, RR, SpO2: stable & adequate BP & HR: stable & adequate Hydration State: stable & adequate Neuraxial Anesthesia: was administered and sensory block is resolving Anesthetic Complications: no major complications apparent and Pt Satisfied with anesthetic care
--- NOTE | 2021-06-10 16:33 | Anesthesia Procedure Note ---
Date of Service June 10, 2021 Anesthesia Post Epidural Note Vital Signs Vital Signs: Temp Pulse Resp BP Pulse Ox 97.7 F 95 H 18 126/54 L 99 06/10/21 13:18 06/10/21 16:31 06/10/21 13:46 06/10/21 16:17 06/10/21 16:26 Pain Intensity Bilateral Abdomen: Pain Intensity: 0 Notes Mental Status: alert / awake / arousable and participated in evaluation Nausea / Vomiting: adequately controlled Pain: adequately controlled Airway Patency, RR, SpO2: stable & adequate BP & HR: stable & adequate Hydration State: stable & adequate Neuraxial Anesthesia: was administered and sensory block is resolving Anesthetic Complications: no major complications apparent and Pt Satisfied with anesthetic care Epidural: Removed without complications and With tip intact
[2021-06-10] MEDS: KETOROLAC 30 MG/ML VIAL IV PRN (16:36)
[2021-06-10] MEDS ORDERED: SODIUM CHLORIDE 0.9% 250 ML IV PRN (16:44)
[2021-06-10] MEDS ORDERED: OXYTOCIN 10 UNITS/ML VIAL IM ONE (17:08)
[2021-06-10] MEDS ORDERED: OXYTOCIN 30 UNITS in D5W AND LACTATED RINGERS 1,000 ML IV SCH (17:15)
[2021-06-10] MEDS ORDERED: ACETAMINOPHEN 1,000 MG/100 ML VIAL IV PRN (17:16)
[2021-06-10] MEDS: SIMETHICONE 80 MG CHEW PO SCH ×2 (17:40→21:33)
[2021-06-10] MEDS: METHYLERGONOVINE MALEATE 0.2 MG TAB PO SCH ×2 (17:40→21:33)
[2021-06-10] MEDS ORDERED: MEASLES, MUMPS & RUBELLA VIRUS VIAL SQ ONE (18:00)
[2021-06-10] MEDS ORDERED: guaiFENesin SUGAR FREE 100 MG/5 ML UDC PO SCH (18:00)
[2021-06-10] MEDS: guaiFENesin/DEXTROM SYRUP 200MG/20MG 10ML UDC PO SCH ×2 (18:43→23:00)
--- NOTE | 2021-06-10 19:33 | Operative Report (OR) ---
DATE OF SURGERY: 06/10/2021 PREOPERATIVE DIAGNOSES: The patient is a 26-year-old 1, para 0, at 40 weeks and 3 days of gestation, admitted for induction of labor on 06/08/2021. Received 2 days of cervical ripening and maximum dose of Pitocin and arrest of dilatation in active phase of labor, suspected macrosomia and cephalopelvic disproportion. POSTOPERATIVE DIAGNOSES: The patient is a 26-year-old 1, para 0, at 40 weeks and 3 days of gestation, admitted for induction of labor on 06/08/2021. Received 2 days of cervical ripening and maximum dose of Pitocin and arrest of dilatation in active phase of labor, suspected macrosomia and cephalopelvic disproportion, and macrosomia. PROCEDURE: Primary low transverse with Pfannenstiel skin incision. SURGEON: Yvette Nolen MD. RESEARCH AND DEVELOPMENT DIRECTOR: Elizabeth Cali, registered nurse for labor and delivery. ESTIMATED BLOOD LOSS: 600 mL. FLUIDS: 1500 mL of lactated Ringer's. DRAINS: Hammond catheter drained 100 mL of clear urine. ANESTHESIA: Labor epidural. ANESTHESIOLOGIST: Dr. Brito. COMPLICATIONS: None. FINDINGS: Baby was a viable female , delivered at 1622 p.m. Apgars were 8/8. Weight was 4314 grams. Maternal findings: Normal uterus, fallopian tubes, and ovaries. DESCRIPTION OF PROCEDURE: The patient was taken to the operating room where epidural anesthesia was found to be adequate. She was placed in dorsal supine position with a leftward tilt. She was prepared and draped in the usual sterile fashion. A Pfannenstiel skin incision was made and carried through to the underlying layer of fascia with the Bovie. Fascia was incised in the midline and incision was extended laterally with the help of Erickson scissors. Upper aspect of the facial incision was grasped with 2 Edward clamps, elevated, and underlying rectus muscles were dissected off sharply with Erickson scissors. Lower aspect of the fascial incision was then grasped with 2 Edward clamps, elevated and underlying rectus muscles were dissected off sharply with Erickson scissors. Rectus muscles were in the midline. Peritoneum was entered bluntly with fingers. Peritoneal incision was extended superiorly and inferiorly with good visualization of the bladder. Bladder blade was inserted. Vesicouterine peritoneum was identified, grasped with pickups, entered sharply with Metzenbaum scissors. Bladder flap was created digitally and bladder blade was reinserted. Lower uterine segment was incised in a transverse fashion. Incision was extended laterally with bandage scissors. Membranes were ruptured. Clear fluid was obtained. Baby's head was delivered without difficulty. Shoulders were delivered with minimal traction. Mouth and nose were suctioned. Baby was breathing, moving and crying, and cord was clamped x2 and cut at 1 minute delay, and the baby was handed off to the waiting pediatric team with Dr. Gonzalez. Placenta was delivered manually as intact and complete. Uterus was exteriorized and cleared of all clots and debris. This uterine incision was repaired with 0 Vicryl in a running locked fashion. A second imbricating layer was placed with another 0 Vicryl in a running locked fashion. Excellent hemostasis was achieved. Cul-de-sac was irrigated with warm normal saline and suctioned. Uterus was returned to the abdomen. Pelvis was irrigated with warm normal saline and suctioned. Uterine incision was checked to be hemostatic. Parietal peritoneum was reapproximated with 3-0 Vicryl in a running fashion. The rectus muscles were also brought together with the same suture in a running fashion, and under the fascia and over the rectus muscles were hemostatic. Rectus fascia was reapproximated with 0 Vicryl in a running fashion. Subcuticular fat tissue was brought together with 3-0 Vicryl in a running fashion. The skin was closed with 4-0 Monocryl in a subcuticular fashion. The patient tolerated the procedure well. Sponge, needle, and instrument count was correct x3. No complications happened. I was present during the whole procedure. She was given 2 grams of cefazolin and 900 mg of clindamycin before surgery. She was taken to the recovery room in stable condition. Job ID: [id number] [facility]
[2021-06-10] MEDS: DOCUSATE SODIUM 100 MG CAP PO SCH (21:33)
[2021-06-10] MEDS: diphenhydrAMINE 50 MG/ML VIAL IV PRN (21:53)
[2021-06-10] MEDS: CLINDAMYCIN 900 MG in DEXTROSE 5% 50 ML IV SCH (22:03)
[2021-06-10] MEDS: ceFAZolin 2000MG 2,000 MG/15 ML SYR IV SCH (23:00)
[2021-06-11] MEDS: diphenhydrAMINE 50 MG/ML VIAL IV PRN (03:52)
[2021-06-11] MEDS: guaiFENesin/DEXTROM SYRUP 200MG/20MG 10ML UDC PO SCH ×3 (05:45→17:17)
[2021-06-11] MEDS: KETOROLAC 30 MG/ML VIAL IV PRN (06:03)
[2021-06-11] MEDS: CLINDAMYCIN 900 MG in DEXTROSE 5% 50 ML IV SCH ×2 (06:15→14:42)
[2021-06-11] MEDS: ceFAZolin 2000MG 2,000 MG/15 ML SYR IV SCH ×2 (06:48→15:53)
[2021-06-11 07:09] LABS: Basophils # (auto) 0.02 K/uL (0-0.2); Basophils % (auto) 0.1 %; Eosinophils # (auto) 0.17 K/uL (0-0.5); Hematocrit (blood only) 30.9 % (37-47); Hemoglobin 10.4 g/dL (12.0-16.0); Immature Granulocytes # (auto) 0.05 K/uL (0.00-0.02); Immature Granulocytes % (auto) 0.3 %; Lymphocytes # (auto) 2.35 K/uL (1.2-3.4); Lymphocytes % (auto) 14.2 %; Mean Corpuscular Hemoglobin 28.5 pg (25-34); Mean Corpuscular Hgb Conc 33.7 g/dL (32-36); Mean Corpuscular Volume 84.7 fL (80-100); Mean Platelet Volume 9.8 fL (7.4-10.4); Monocytes # (auto) 1.33 K/uL (0.11-0.59); Monocytes % (auto) 8.1 %; Neutrophils # (auto) 12.59 K/uL (1.4-6.5); Neutrophils % (auto) 76.3 %; Platelet Count 295 K/uL (130-400); RDW Coefficient of Variation 14.7 % (11.5-14.5); RDW Standard Deviation 45.7 fL (36.4-46.3); Red Blood Count 3.65 M/uL (4.2-5.4); White Blood Count 16.51 K/uL (4.8-10.8)
[2021-06-11] MEDS: PRENATAL VITAMIN 1 TAB PO SCH (08:55)
[2021-06-11] MEDS: SIMETHICONE 80 MG CHEW PO SCH ×4 (08:55→20:11)
[2021-06-11] MEDS: FERROUS SULFATE 325 MG TAB PO SCH (08:55)
[2021-06-11] MEDS: DOCUSATE SODIUM 100 MG CAP PO SCH ×2 (08:55→20:11)
[2021-06-11] MEDS: METHYLERGONOVINE MALEATE 0.2 MG TAB PO SCH ×4 (08:55→20:11)
[2021-06-11] MEDS ORDERED: diphenhydrAMINE 50 MG/ML VIAL IV PRN (09:29)
[2021-06-11] MEDS ORDERED: PROMETHAZINE HCL 25 MG in SODIUM CHLORIDE 0.9% 50 ML IV PRN (09:29)
[2021-06-11] MEDS ORDERED: diphenhydrAMINE Capsule 25 MG CAP PO PRN (09:29)
[2021-06-11] MEDS ORDERED: ONDANSETRON INJ 2 MG/ML 2 ML VIAL IV PRN (09:29)
[2021-06-11] MEDS ORDERED: KETOROLAC 30 MG/ML VIAL IV PRN (09:29)
[2021-06-11] MEDS ORDERED: MEPERIDINE HCL 50 MG/ML CARP IV PRN (09:29)
--- NOTE | 2021-06-11 10:41 | Obstetrical Progress Note ---
Date of Service June 11, 2021 Subjective Ambulation: ambulating normally Voiding: no voiding problems Passing Gas:: Yes Diet Tolerance:: regular diet Feeding Type:: breast feeding Current Pain Level(1-10): 0 POD#1 doing well Physical Exam Constitutional WD/WN, vitals as above comfortable abdomen soft and non-tender no edema neg Carolee's will increase diet/activity Results & Data ([facility]) Vital Signs (Past 12 Hours) Vital Signs Temp Pulse Pulse Resp BP BP Pulse Ox 06/11/21 08:00 36.5 C 72 18 100/65 95 06/11/21 06:20 18 96 06/11/21 05:05 16 96 06/11/21 03:50 16 95 06/11/21 03:45 36.7 C 72 16 104/68 695 H 06/11/21 03:15 16 95 06/11/21 02:50 16 95 06/11/21 01:40 18 94 06/11/21 00:30 18 92 06/10/21 23:10 36.8 C 71 16 115/74 96 Laboratory Results 06/08/21 06/08/21 06/08/21 07:45 07:45 08:51 WBC RBC Hgb Hct MCV MCH MCHC RDW Std Deviation RDW Coeff of Lazara Plt Count MPV Immature Gran % (Auto) Neut % (Auto) Lymph % (Auto) Barren % (Auto) Eos % (Auto) Baso % (Auto) Neut # (Auto) Lymph # (Auto) Barren # (Auto) Eos # (Auto) Baso # (Auto) Immature Gran # (Auto) COVID-19 Eval Order Covid19 IDNow [facility] SARS-CoV-2, RNA, NAAT NEGATIVE Blood Type O Positive Antibody Screen NEGATIVE Crossmatch 06/08/21 06/10/21 06/10/21 08:51 14:43 14:43 WBC 13.97 H 20.23 H RBC 4.40 4.56 Hgb 12.3 13.1 Hct 37.1 38.2 MCV 84.3 83.8 MCH 28.0 28.7 MCHC 33.2 34.3 RDW Std Deviation 44.6 44.6 RDW Coeff of Lazara 14.4 14.6 H Plt Count 359 369 MPV 9.6 9.8 Immature Gran % (Auto) 0.2 Neut % (Auto) 85.6 Lymph % (Auto) 7.8 Barren % (Auto) 6.2 Eos % (Auto) 0.1 Baso % (Auto) 0.1 Neut # (Auto) 17.33 H Lymph # (Auto) 1.57 Barren # (Auto) 1.25 H Eos # (Auto) 0.02 Baso # (Auto) 0.02 Immature Gran # (Auto) 0.04 H COVID-19 Eval Order SARS-CoV-2, RNA, NAAT Blood Type O Positive Antibody Screen NEGATIVE Crossmatch See Detail 06/11/21 06:36 WBC 16.51 H RBC 3.65 L Hgb 10.4 L Hct 30.9 L MCV 84.7 MCH 28.5 MCHC 33.7 RDW Std Deviation 45.7 RDW Coeff of Lazara 14.7 H Plt Count 295 MPV 9.8 Immature Gran % (Auto) 0.3 Neut % (Auto) 76.3 Lymph % (Auto) 14.2 Barren % (Auto) 8.1 Eos % (Auto) 1.0 Baso % (Auto) 0.1 Neut # (Auto) 12.59 H Lymph # (Auto) 2.35 Barren # (Auto) 1.33 H Eos # (Auto) 0.17 Baso # (Auto) 0.02 Immature Gran # (Auto) 0.05 H COVID-19 Eval Order SARS-CoV-2, RNA, NAAT Blood Type Antibody Screen Crossmatch
[2021-06-11] MEDS: IBUPROFEN 600 MG TAB PO PRN ×3 (11:54→21:20)
[2021-06-11] MEDS: oxyCODONE/ACETAMINOPHEN 5mg/325mg TAB PO PRN ×4 (11:54→21:19)
[2021-06-11] MEDS ORDERED: bisacodyL 5 MG TABEC PO SCH (20:00)
[2021-06-12] MEDS: guaiFENesin/DEXTROM SYRUP 200MG/20MG 10ML UDC PO SCH ×3 (00:12→11:30)
[2021-06-12] MEDS: IBUPROFEN 600 MG TAB PO PRN ×3 (01:16→11:02)
[2021-06-12] MEDS: oxyCODONE/ACETAMINOPHEN 5mg/325mg TAB PO PRN ×3 (01:16→11:02)
[2021-06-12 06:57] LABS: Hematocrit (blood only) 34.2 % (37-47); Hemoglobin 11.2 g/dL (12.0-16.0)
--- NOTE | 2021-06-12 08:35 | Obstetrical Progress Note ---
Date of Service June 12, 2021 Assessment & Plan Admission and Anticipated Discharge Date Admission Date: June 08, 2021 Subjective Patient is seen and examined. She feels well, no complaints. Pain is under control with oral meds. Ambulating without dizziness Voiding without difficulty Tolerating regular diet with out N&V Flatus + BM + Bleeding is minimal No fever/ chills/ CP/ SOB/ N&V/ Leg pain Breast feeding without problems Vital Signs Temp Pulse Resp BP 06/11/21 23:35 36.5 C 75 18 115/74 Vital Signs Temp Pulse Resp BP Pulse Ox 06/11/21 23:35 36.5 C 75 18 115/74 06/11/21 19:55 36.6 C 79 18 118/75 97 06/11/21 15:25 36.6 C 88 18 118/75 95 06/11/21 12:00 36.7 C 80 18 103/66 95 Lab Results 06/08/21 06/08/21 06/08/21 Range/Units 07:45 07:45 08:51 WBC (4.8-10.8) K/uL RBC (4.2-5.4) M/uL Hgb (12.0-16.0) g/dL Hct (37-47) % MCV (80-100) fL MCH (25-34) pg MCHC (32-36) g/dL RDW Std Deviation (36.4-46.3) fL RDW Coeff of Lazara (11.5-14.5) % Plt Count (130-400) K/uL MPV (7.4-10.4) fL Immature Gran % (Auto) % Neut % (Auto) % Lymph % (Auto) % [place] % (Auto) % Eos % (Auto) % Baso % (Auto) % Neut # (Auto) (1.4-6.5) K/uL Lymph # (Auto) (1.2-3.4) K/uL [place] # (Auto) (0.11-0.59) K/uL Eos # (Auto) (0-0.5) K/uL Baso # (Auto) (0-0.2) K/uL Immature Gran # (Auto) (0.00-0.02) K/uL COVID-19 Eval Order Covid19 [facility] SARS-CoV-2, RNA, NAAT NEGATIVE (NEGATIVE) Blood Type O Positive Antibody Screen NEGATIVE Crossmatch 06/08/21 06/10/21 06/10/21 Range/Units 08:51 14:43 14:43 WBC 13.97 H 20.23 H (4.8-10.8) K/uL RBC 4.40 4.56 (4.2-5.4) M/uL Hgb 12.3 13.1 (12.0-16.0) g/dL Hct 37.1 38.2 (37-47) % MCV 84.3 83.8 (80-100) fL MCH 28.0 28.7 (25-34) pg MCHC 33.2 34.3 (32-36) g/dL RDW Std Deviation 44.6 44.6 (36.4-46.3) fL RDW Coeff of Lazara 14.4 14.6 H (11.5-14.5) % Plt Count 359 369 (130-400) K/uL MPV 9.6 9.8 (7.4-10.4) fL Immature Gran % (Auto) 0.2 % Neut % (Auto) 85.6 % Lymph % (Auto) 7.8 % [place] % (Auto) 6.2 % Eos % (Auto) 0.1 % Baso % (Auto) 0.1 % Neut # (Auto) 17.33 H (1.4-6.5) K/uL Lymph # (Auto) 1.57 (1.2-3.4) K/uL [place] # (Auto) 1.25 H (0.11-0.59) K/uL Eos # (Auto) 0.02 (0-0.5) K/uL Baso # (Auto) 0.02 (0-0.2) K/uL Immature Gran # (Auto) 0.04 H (0.00-0.02) K/uL COVID-19 Eval Order SARS-CoV-2, RNA, NAAT (NEGATIVE) Blood Type O Positive Antibody Screen NEGATIVE Crossmatch See Detail 06/11/21 06/12/21 Range/Units 06:36 06:06 WBC 16.51 H (4.8-10.8) K/uL RBC 3.65 L (4.2-5.4) M/uL Hgb 10.4 L 11.2 L (12.0-16.0) g/dL Hct 30.9 L 34.2 L (37-47) % MCV 84.7 (80-100) fL MCH 28.5 (25-34) pg MCHC 33.7 (32-36) g/dL RDW Std Deviation 45.7 (36.4-46.3) fL RDW Coeff of Lazara 14.7 H (11.5-14.5) % Plt Count 295 (130-400) K/uL MPV 9.8 (7.4-10.4) fL Immature Gran % (Auto) 0.3 % Neut % (Auto) 76.3 % Lymph % (Auto) 14.2 % [place] % (Auto) 8.1 % Eos % (Auto) 1.0 % Baso % (Auto) 0.1 % Neut # (Auto) 12.59 H (1.4-6.5) K/uL Lymph # (Auto) 2.35 (1.2-3.4) K/uL [place] # (Auto) 1.33 H (0.11-0.59) K/uL Eos # (Auto) 0.17 (0-0.5) K/uL Baso # (Auto) 0.02 (0-0.2) K/uL Immature Gran # (Auto) 0.05 H (0.00-0.02) K/uL COVID-19 Eval Order SARS-CoV-2, RNA, NAAT (NEGATIVE) Blood Type Antibody Screen Crossmatch PE: General: Alert, orientedx3, NAD CVS: S1S2 RRR Lungs; CTAB Abd: soft, NT, ND, BS+, fundus firm, below Umbilicus Incision: Clean, dry, intact Perineum intact, Lochia rubra minimal Ext; NT, no edema AP: 26 yo s/p C Section, pod# 2 VSS Afebrile doing well Continue routine postop care Encourage ambulation, PO intake All questions were answered Desires d/c today Discussed when to call D/C home , f/u in office Results & Data ([facility]) Vital Signs (Past 12 Hours) Vital Signs Temp Pulse Resp BP 06/11/21 23:35 36.5 C 75 18 115/74
[2021-06-12] MEDS ORDERED: AMOXICILLIN/CLAVULANATE 875 MG TAB PO SCH (09:00)
[2021-06-12] MEDS: DOCUSATE SODIUM 100 MG CAP PO SCH (09:13)
[2021-06-12] MEDS: SIMETHICONE 80 MG CHEW PO SCH ×2 (09:13→13:40)
[2021-06-12] MEDS: PRENATAL VITAMIN 1 TAB PO SCH (09:14)
[2021-06-12] MEDS: FERROUS SULFATE 325 MG TAB PO SCH (09:14)
[2021-06-12] MEDS: METHYLERGONOVINE MALEATE 0.2 MG TAB PO SCH (12:58)
[2021-06-12] MEDS ORDERED: bisacodyL 10 MG SUPP PR PRN (16:04)
--- NOTE | 2021-06-17 21:41 | Discharge Summary (DS) ---
DATE OF ADMISSION: 06/08/2021. DATE OF DISCHARGE: 06/12/2021. DETAILS OF ADMISSION: The patient is a 26-year-old G1, P0 at 40 weeks and 1 day of gestation, who wa s admitted on 06/08/2021 for induction of labor for postdates. Her cervix was unfavorable and she wa s ordered p.o. Cytotec by Dr. Garcia. She received 3 doses of Cytotec on the day of admission and she has not had contractions. After dinner in the evening, she was placed on Cervidil for cervical ripen ing. Her vital signs were stable, afebrile. heart rate has been reassuring and on the next da y, the patient was doing well, vital signs stable, afebrile. Her cervix was 2 cm dilated, 50% efface d, -2, still unfavorable. She received a Hammond bulb for mechanical dilatation with low-dose of Pitoc in per protocol and on the evening of hospital day #2, Hammond came out. Her cervix was 4, 75, -2. Pi tocin was at 20 milliunits per minute and in the morning of 06/10/2021, her cervix was checked by Dr. Garcia and it was 5, 90, -1. Pitocin was increased to 30 milliunits per minute and then I took her o sergio on the morning of 06/10/2021 and her cervix was checked by her nurse. It was 7 cm, 80%, -2 per h er exam. heart rate was category 1. She had epidural and she was comfortable and resting and in the afternoon at 2:30 p.m., I checked her, her cervix was 6-7 cm, 80% effaced, and head was coned and at -1 station. The patient was on the maximum dose of Pitocin for over 4 hours and there was no cervical change. Recommended primary due to arrest of dilatation in active stage of labor, suspected macrosomia and with cone head. Discussed risks and benefits of . She understood all and signed an informed consent. She was taken to the operating room on 06/10/2021. She delivered a viable female at 4:22 p.m. Apgars were 8/8. Weight was 4314 grams. Her surgery was uncomplicated. See dictated op note for d etails. She was placed on IV antibiotics for 24 hours due to prolonged labor and rupture of membrane s. On postop day #1, the patient was doing well, vital signs stable, afebrile. Physical exam was un remarkable. Incision was clean, dry and intact. Abdomen was soft, nontender, nondistended. Her H a nd H was 13/38. On postop day #2, the patient was doing well, vital signs stable, afebrile. Pain was under control with oral medications. She was passing gas, moving her bowels and eating regular diet , without difficulty. Vital signs stable, afebrile. Physical Exam was normal. Abdomen was soft, nontender, nondistended. Incision was clean, dry and intact. She desired to be discharged home in the afternoon on postop da y #2. Discharge instructions were given. Prescriptions were written for pain. She is to be seen in the office in a week. All questions were answered. Job ID: [id number]
== END 2021-06-12 15:10 | disposition home or self-care (01) | DRG 788 ==
LOC: 4S1 07:35 → 4S2 06-10 20:02